=== PATIENT | female | born 1950 | race Caucasian/White ===

== ENCOUNTER 2017-01-03 16:20 | Emergency (ER) | payer MEDICARE, OTHER ==
--- NOTE | 2017-01-05 10:39 | ER ---
ADMIT: 01/03/2017 RM/LOC: ER [facility] MR#: [id number] [id number] [id number] VINNIE LENTZ [address] [place] [address] Emergency Room Report SEX: F AGE: 66 : 1950 DATE: 01/03/2017 TIME: 1620 hours. Please refer to my T-sheet for complete H and P. 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 Tetanus shot is up-to-date. PHYSICAL EXAMINATION: VITAL SIGNS: Stable. EXTREMITIES: Her right hand reveals 2 C-shaped lacerations, one to the index finger in the middle phalanx area on the volar aspect, one on the long finger on the distal fat pad on the volar aspect, both are 3 cm. Neurovascular intact distally. No tendon involvement. EMERGENCY DEPARTMENT COURSE: I anesthetized both locally with bupivacaine on her request and set of a digit block locally, they were cleansed with saline wash, they were approximated using 5-0 interrupted Ethilon, showed good approximation, they have recovered. Ready for discharge. ASSESSMENT: Long and index finger lacerations x2, total of 6 cm, both closed in the Emergency Department. The right index finger received five sutures, the right long received six sutures. PLAN: Keep clean. Return if fever, pus, or drainage. Keflex 500 b.i.d. for 5 days. Tylenol and Motrin. Suture removal in 8-10 days. Morgan Cameron MD/ roz JOB #: [id number] CC: Morgan Cameron MD, Attending Physician Cristopher Gallagher MD, Family Physician
== END 2017-01-03 17:09 | disposition home or self-care (01) ==
LOC: ER 16:20
PROC: 0HQFXZZ Repair Right Hand Skin, External Approach (ICD-10-PCS; principal; 2017-01-03)
DX: S61.210A Laceration without foreign body of right index finger without damage to nail, initial encounter (principal); S61.212A Laceration without foreign body of right middle finger without damage to nail, initial encounter; F32.9 Major depressive disorder, single episode, unspecified; Z98.890 Other specified postprocedural states; Z23 Encounter for immunization; Z79.899 Other long term (current) drug therapy; W45.8XXA Other foreign body or object entering through skin, initial encounter; Y92.009 Unspecified place in unspecified non-institutional (private) residence as the place of occurrence of the external cause